=== PATIENT | male | born 1950 | race Caucasian/White ===

== ENCOUNTER → 2018-11-16 | Outpatient (CLI) | payer MEDICARE ==
--- NOTE | 2018-11-16 13:50 | Diagnostic Imaging Report ---
EXAMINATION: CHEST 2 VIEWS INDICATION: Cough, pneumonia COMPARISON: None FINDINGS: LINES/TUBES:None LUNGS:The lungs are well-inflated. No focal consolidation or pulmonary edema. Mild biapical pleural parenchymal thickening/scarring. PLEURA:No pleural effusion or pneumothorax. MEDIASTINUM:The cardiomediastinal silhouette appears normal in size and shape. BONES/SOFT TISSUES:No acute osseous injury. Partially visualized cervical fusion hardware. ABDOMEN:No free air under the diaphragm. IMPRESSION: No focal pneumonia or pulmonary edema. Signed by: Gigi Boles MD on 11/16/2018 1:47 PM
== END ==
LOC: RAD 12:26
PROVIDERS: ATTEND Family Medicine
DX: J18.9 Pneumonia, unspecified organism (principal)
CPT/HCPCS: 71046

== ENCOUNTER → 2020-12-08 | Outpatient (CLI) | payer OTHER | LOC: RAD 09:41 | PROVIDERS: ATTEND Family Medicine | DX: J40 Bronchitis, not specified as acute or chronic (principal) | CPT/HCPCS: 71046 ==

== ENCOUNTER 2021-06-28 08:45 | Emergency (ER) | payer MEDICARE ==
[~2021-06-28] VITALS: Ht 177.8 cm; Wt 75.6 kg
[~2021-06-28 08:45] MED LIST: ACETAMINOPHEN-1 EAC4 PO; ASPIRIN325 MG PO; BENICAR HCT 401 EACH; FLONASE ALLERG9.9 ML PO; LEVETIRACETAM500 MG PO; METOPROLOL SUCC50 MG PO; NEXIUM20 MG PO; TRAZODONE HCL100 MG PO; ZETIA10 MG PO
[2021-06-28] MEDS ORDERED: BOTOX100 UNIT SQ (09:01)
== END 2021-06-28 09:23 | disposition home or self-care (01) ==
LOC: FSED 09:18
DX: R50.9 Fever, unspecified (principal); J06.9 Acute upper respiratory infection, unspecified; R05.9 Cough, unspecified; I10 Essential (primary) hypertension; E78.5 Hyperlipidemia, unspecified; K21.9 Gastro-esophageal reflux disease without esophagitis; M54.9 Dorsalgia, unspecified; G89.29 Other chronic pain
CPT/HCPCS: 99282

== ENCOUNTER → 2021-07-09 | Outpatient (CLI) | payer MEDICARE ==
[~2021-07-09] MED LIST changes: +BOTOX100 UNIT SQ
== END ==
LOC: RAD 10:40
PROVIDERS: ATTEND Family Medicine
DX: R05.3 Chronic cough (principal)
CPT/HCPCS: 71046

== ENCOUNTER → 2023-10-27 | Outpatient (REF) | payer MEDICARE | LOC: US 10:02 | PROVIDERS: ATTEND Family Medicine | DX: N50.812 Left testicular pain (principal) | CPT/HCPCS: 76870; 93976 ==

== ENCOUNTER 2024-09-07 21:58 | Emergency (ER) | payer MEDICARE ==
[~2024-09-07] VITALS: Ht 177.8 cm; Wt 75.3 kg
[2024-09-07 23:00] VITALS: TEMP 97.5
[2024-09-07] MEDS: ONDANSETRON HCL 4 MG ORAL DISINTEGRATING TAB PO STA (23:49)
[2024-09-07] MEDS: SODIUM CHLORIDE 0.9% 1000ML 1,000 ML IV STA (23:49)
[2024-09-08] MEDS: KETOROLAC TROMETHAMINE 30 MG/ML VIAL IV STA (00:15)
[2024-09-08 00:21] LABS: BASOPHILS % 0.4 % (0.0-1.0); EOSINOPHILS % 0.4 % (0.0-6.0); LYMPHOCYTES % 25.5 % (18.0-39.1); MONOCYTES % 8.4 % (4.4-11.3); NEUTROPHILS % 64.9 % (38.7-80.0); RED CELL DISTRIBUTION WIDTH 12.6 % (11.7-14.4)
[2024-09-08 00:26] LABS: EST GLOMERULAR FILTRATION RATE 39.0 ML/MIN (>=60)
[2024-09-08 00:27] LABS: LEUKOCYTE ESTERASE ,URINE NEGATIVE (NEGATIVE); PROTEIN,URINE DIPSTICK NEGATIVE (NEGATIVE); URINE UROBILINOGEN 0.2 mg/dL (0.2 - 1); WBC,URINE (MAN) 0-5 /HPF (0-5)
[2024-09-08 00:28] LABS: EPITHELIAL CELLS,URINE FEW /LPF
[2024-09-08 01:00] VITALS: PULSE 60; RESP 17
[2024-09-08 02:07] VITALS: BP 152/69; PULSE 78; RESP 20; O2SAT 96
[2024-09-08] MEDS ORDERED: ULTRAM 50MG50 MG PO (08:49)
== END 2024-09-08 02:08 | disposition home or self-care (01) ==
LOC: ER 22:03
DX: S22.41XA Multiple fractures of ribs, right side, initial encounter for closed fracture (principal); X58.XXXA Exposure to other specified factors, initial encounter; I10 Essential (primary) hypertension; E78.5 Hyperlipidemia, unspecified; K21.9 Gastro-esophageal reflux disease without esophagitis; M54.9 Dorsalgia, unspecified; G89.29 Other chronic pain
CPT/HCPCS: 36415; 74176; 80053; 81001; 83690; 85025; 99284; J1885; J7030; Q0162

== ENCOUNTER 2024-12-05 10:47 | Inpatient (IN) | payer MEDICARE ==
[~2024-12-05] VITALS: Ht 177.8 cm; Wt 75.8 kg
[~2024-12-05 10:47] MED LIST changes: +ULTRAM 50MG50 MG PO
[2024-12-05 10:53] VITALS: TEMP 98.6
[2024-12-05 11:31] LABS: BASOPHILS % 0.2 % (0.0-1.0); EOSINOPHILS % 0.2 % (0.0-6.0); LYMPHOCYTES % 12.8 % (18.0-39.1); MONOCYTES % 6.0 % (4.4-11.3); NEUTROPHILS % 80.6 % (38.7-80.0); RED CELL DISTRIBUTION WIDTH 12.1 % (11.7-14.4)
[2024-12-05] MEDS: MECLIZINE HCL 12.5 MG TAB PO ONE (11:43)
[2024-12-05] MEDS: SODIUM CHLORIDE 0.9% 1000ML 1,000 ML IV STA (11:43)
[2024-12-05] MEDS: ONDANSETRON HCL INJ 2MG/ML 2ML 2 MG/ML VIAL IV STA (11:43)
[2024-12-05 11:44] LABS: INR 0.96
[2024-12-05 11:54] LABS: EST GLOMERULAR FILTRATION RATE 35.0 ML/MIN (>=60)
[2024-12-05] MEDS ORDERED: IOPAMIDOL 370 MG/ML 100 ML INFUS..BTL INJ ONE (12:01)
[2024-12-05] MEDS ORDERED: ONDANSETRON HCL INJ 2MG/ML 2ML 2 MG/ML VIAL IV PRN (14:45)
[2024-12-05] MEDS: ASPIRIN 81 MG CHEW TAB PO ONE (15:15)
[2024-12-05] MEDS: SODIUM CHLORIDE 0.9% 1000ML 1,000 ML IV SCH (15:15)
[2024-12-05] MEDS: LEVETIRACETAM 500 MG TAB PO SCH (18:45)
[2024-12-05 19:34] VITALS: PULSE 77; RESP 18
[2024-12-05 20:30] VITALS: BP 135/64; PULSE 65; RESP 16; TEMP 97.5; O2SAT 100
[2024-12-05] MEDS ORDERED: POLYETHYLENE GLYCOL 3350 17 GM PACK PO PRN (20:30)
[2024-12-06] VITALS (7 sets, daily range): BP systolic 132–160; BP diastolic 66–79; PULSE 63–88; RESP 16–20; TEMP 97.3–98.7; O2SAT 98–100
[2024-12-06 05:29] LABS: BASOPHILS % 0.2 % (0.0-1.0); EOSINOPHILS % 1.2 % (0.0-6.0); LYMPHOCYTES % 23.3 % (18.0-39.1); MONOCYTES % 11.1 % (4.4-11.3); NEUTROPHILS % 64.0 % (38.7-80.0); RED CELL DISTRIBUTION WIDTH 12.0 % (11.7-14.4)
[2024-12-06 05:55] LABS: CHOL/HDL RATIO 2.6 (3.9-4.7); EST GLOMERULAR FILTRATION RATE 43.0 ML/MIN (>=60); LDL CHOLESTEROL 49.0 MG/DL (60-130)
[2024-12-06] MEDS ORDERED: ALLOPURINOL100 MG PO (06:33)
[2024-12-06] MEDS ORDERED: HYDROCHLOROTHIA25 MG (06:33)
[2024-12-06] MEDS ORDERED: FOLIC ACID0.4 MG PO (06:34)
[2024-12-06] MEDS ORDERED: AMITRIPTYLINE H25 MG PO (06:34)
[2024-12-06] MEDS ORDERED: FLOMAX0.4 MG PO (06:36)
[2024-12-06] MEDS ORDERED: [UNRECOGNIZED DRUG - OTHER] (06:36)
[2024-12-06] MEDS ORDERED: BACTRIM DS TAB1 EACH PO (06:37)
[2024-12-06] MEDS ORDERED: CLEOCIN HCL300 MG PO (06:37)
[2024-12-06] MEDS: DOCUSATE SODIUM 100 MG CAP PO SCH (08:49)
[2024-12-06] MEDS: PANTOPRAZOLE SOD 40 MG TABEC PO ONE (08:49)
[2024-12-06] MEDS: OLMESARTAN 20 MG TAB PO SCH (08:49)
[2024-12-06] MEDS: ACETAMINOPHEN 325 MG TAB PO PRN (08:49)
[2024-12-06] MEDS: HYDROCHLOROTHIAZIDE 25 MG TAB PO SCH (08:51)
[2024-12-06] MEDS ORDERED: LEVETIRACETAM 500 MG TAB PO SCH (09:00)
[2024-12-06] MEDS: LORAZEPAM INJ 2 MG/ML VIAL IV ONE (10:17)
[2024-12-06] MEDS: HYDRALAZINE HCL 20 MG/ML VIAL IV PRN (17:30)
[2024-12-06 17:47] LABS: LEUKOCYTE ESTERASE ,URINE NEGATIVE (NEGATIVE); PROTEIN,URINE DIPSTICK NEGATIVE (NEGATIVE); URINE UROBILINOGEN 0.2 mg/dL (0.2 - 1)
[2024-12-06 19:50] LABS: CREATININE,URINE RANDOM 42.92 mg/dL (63-166)
[2024-12-06 19:51] LABS: TOTAL PROTEIN, URINE < 6.8 mg/dL (1-14)
[2024-12-06] MEDS: ACETAMIN/BUTALBITAL/CAFFEINE TAB PO PRN (21:48)
[2024-12-07] VITALS (8 sets, daily range): BP systolic 138–180; BP diastolic 65–88; PULSE 84–108; RESP 16–21; TEMP 97.7–98.7; O2SAT 98–100
[2024-12-07 06:14] LABS: BASOPHILS % 0.2 % (0.0-1.0); EOSINOPHILS % 0.2 % (0.0-6.0); LYMPHOCYTES % 13.5 % (18.0-39.1); MONOCYTES % 9.6 % (4.4-11.3); NEUTROPHILS % 76.1 % (38.7-80.0); RED CELL DISTRIBUTION WIDTH 11.9 % (11.7-14.4)
[2024-12-07 06:43] LABS: EST GLOMERULAR FILTRATION RATE 57.0 ML/MIN (>=60)
[2024-12-07] MEDS ORDERED: PROCHLORPERAZINE EDISYLATE 5 MG/ML VIAL IV PRN (10:45)
[2024-12-07] MEDS ORDERED: PROCHLORPERAZINE EDISYLATE INJ 10 MG in Sodium Chloride 0.9% 50ML 50 ML IV PRN (12:00)
[2024-12-07] MEDS: TRAZODONE HCL 50 MG TAB PO PRN (21:33)
[2024-12-08] VITALS (9 sets, daily range): BP systolic 128–151; BP diastolic 51–77; PULSE 76–98; RESP 18–21; TEMP 97.7–98.6; O2SAT 97–100
[2024-12-08] MEDS: METOPROLOL SUCCINATE 50 MG TAB XL PO SCH (09:00)
[2024-12-09] VITALS (7 sets, daily range): BP systolic 106–179; BP diastolic 58–79; PULSE 71–96; RESP 18–20; TEMP 97.5–98.6; O2SAT 96–98
[2024-12-09] MEDS: PREDNISONE 20 MG TAB PO SCH (15:20)
[2024-12-10] VITALS (9 sets, daily range): BP systolic 134–178; BP diastolic 63–76; PULSE 71–102; RESP 18–20; TEMP 97.5–98.3; O2SAT 97–100
[2024-12-10 06:08] LABS: BASOPHILS % 0.0 % (0.0-1.0); EOSINOPHILS % 0.2 % (0.0-6.0); LYMPHOCYTES % 10.6 % (18.0-39.1); MONOCYTES % 6.9 % (4.4-11.3); NEUTROPHILS % 82.1 % (38.7-80.0); RED CELL DISTRIBUTION WIDTH 12.0 % (11.7-14.4)
[2024-12-10 06:57] LABS: EST GLOMERULAR FILTRATION RATE 66.0 ML/MIN (>=60)
[2024-12-10] MEDS: AMLODIPINE BESYLATE 10 MG TAB PO SCH (08:48)
[2024-12-10] MEDS ORDERED: AMLODIPINE BESYLATE 5 MG TAB PO SCH (09:00)
[2024-12-10] MEDS ORDERED: CARVEDILOL 12.5 MG TAB PO SCH (17:00)
[2024-12-10] MEDS: MECLIZINE HCL 12.5 MG TAB PO PRN (17:21)
[2024-12-10] MEDS: HYDRALAZINE HCL 25 MG TAB PO SCH (18:00)
[2024-12-10] MEDS: SUMATRIPTAN SUCCINATE 25 MG TAB PO ONE ×2 (20:37→22:35)
[2024-12-11] MEDS: TRAZODONE HCL 50 MG TAB PO SCH (00:12)
[2024-12-11] MEDS: TRAZODONE HCL 50 MG TAB PO PRN (00:32)
[2024-12-11 05:00] VITALS: BP 130/58; PULSE 71; RESP 19; TEMP 97.9; O2SAT 98
[2024-12-11 07:03] LABS: EST GLOMERULAR FILTRATION RATE 67.0 ML/MIN (>=60)
[2024-12-11 08:30] VITALS: BP 152/66; PULSE 93; RESP 19; TEMP 97.5; O2SAT 98
[2024-12-11 08:59] VITALS: BP 152/66; PULSE 93; RESP 19; TEMP 97.9; O2SAT 98
[2024-12-11 12:50] VITALS: BP 151/69; PULSE 80; RESP 19; TEMP 97.7; O2SAT 98
[2024-12-11] MEDS ORDERED: LIDOCAINE HCL 2% LOCAL INJ 5 ML SDV VIAL INJ ONE (13:07)
[2024-12-11] MEDS ORDERED: NORVASC10 MG PO (14:04)
[2024-12-11] MEDS ORDERED: HYDRALAZINE HCL25 MG PO (14:04)
[2024-12-11] MEDS ORDERED: BENICAR20 MG PO (14:04)
[2024-12-11] MEDS ORDERED: MECLIZINE HCL12.5 MG PO (14:04)
[2024-12-11 16:50] VITALS: BP 167/76; PULSE 78; RESP 20; TEMP 97.8; O2SAT 98
== END 2024-12-11 17:09 | disposition home or self-care (01) | DRG 683 ==
LOC: ER 11:12 → ERHOLD 14:32 → MED/SURG2 20:15 → OBSVTOIN 12-07 10:30
PROVIDERS: ADMIT Internal Medicine; ATTEND Internal Medicine
DX: N17.9 Acute kidney failure, unspecified (principal); E87.1 Hypo-osmolality and hyponatremia; I44.2 Atrioventricular block, complete; I67.82 Cerebral ischemia; T44.7X5A Adverse effect of beta-adrenoreceptor antagonists, initial encounter; I12.9 Hypertensive chronic kidney disease with stage 1 through stage 4 chronic kidney disease, or unspecified chronic kidney disease; N18.30 Chronic kidney disease, stage 3 unspecified; H81.10 Benign paroxysmal vertigo, unspecified ear; I44.1 Atrioventricular block, second degree; H81.399 Other peripheral vertigo, unspecified ear; H81.09 Meniere's disease, unspecified ear; R11.2 Nausea with vomiting, unspecified; R27.0 Ataxia, unspecified; R00.1 Bradycardia, unspecified; G40.909 Epilepsy, unspecified, not intractable, without status epilepticus; K21.9 Gastro-esophageal reflux disease without esophagitis; E78.5 Hyperlipidemia, unspecified; G89.29 Other chronic pain; M54.9 Dorsalgia, unspecified; R00.0 Tachycardia, unspecified; M54.2 Cervicalgia; G47.00 Insomnia, unspecified; Z91.81 History of falling; Z87.891 Personal history of nicotine dependence; Y92.009 Unspecified place in unspecified non-institutional (private) residence as the place of occurrence of the external cause; Z79.899 Other long term (current) drug therapy; Z79.82 Long term (current) use of aspirin
CPT/HCPCS: 36415; 70450; 70496; 70498; 70551; 71045; 76770; 80048; 80053; 80061; 81001; 82550; 82570; 82948; 83735; 84156; 84300; 84484; 85025; 85610; 85730; 93005; 93306; 95812; 99284; G0378; J0360; J2003; J2060; J2405; J2470; J7030; J7512; Q9967